=== PATIENT | female | born 2000 | race Caucasian/White ===

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

== ENCOUNTER 2020-01-21 14:53 | Emergency (ER) | payer MEDICAID ==
[~2020-01-21] VITALS: Ht 157.5 cm; Wt 54.4 kg
[2020-01-21 15:24] LABS: BILIRUBIN,URINE NEGATIVE (NEGATIVE); CLARITY,URINE SL CLOUDY; COLOR,URINE YELLOW; GLUCOSE, URINE (UA) NEGATIVE (NEGATIVE); KETONES,URINE NEGATIVE (NEGATIVE); LEUKOCYTE ESTERASE ,URINE TRACE (NEGATIVE); NITRITE,URINE NEGATIVE (NEGATIVE); PH,URINE 7.5 (5-9); PROTEIN,URINE NEGATIVE (NEGATIVE)
--- NOTE | 2020-01-21 15:44 | ED GU-Female ---
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 Pt reports chronic bilat pelvic discomfort experienced throughout that has increased in severity. Pt reports on the evening of 01/20/20 after eating dinner, she experienced x1 episode of nausea et vomiting. Pt states, "The pain is on both sides, goes up around, et into my chest." Pt denies urinary symptoms. Pt reports LMP 09/12/19. Source: patient Exam Limitations: no limitations History of Present Illness Date Seen by Provider: Jan 21, 2020 Time Seen by Provider: 15:06 Initial Comments Here with report of bilateral lower quadrant abdominal pain that radiates up the lateral aspects and also into her chest. She is approximately 19 weeks and states that the pain is worse after she's been standing and especially for several hours. Denies dysuria or vaginal discharge or bleeding. Denies recent sexual activity. This is her second . She did not have pain like this with her first . Denies fever or chills. Denies nausea, vomiting or diarrhea. She states that she has somewhat decreased appetite but mostly due to the pain. She is able to eat and drink okay though. Timing/Duration: changing over time, intermittent Severity/Quality: moderate, aching Location: RLQ, LLQ Radiation: right flank, left flank Activities at Onset: other (standing) Prior Genitourinary Problems: none Sexual [place] History: greater than 2 months ago Modifying Factors: Improves With Resting Associated Symptoms: abdominal pain; No dysuria, No fever/chills, No lower back pain, No nausea/vomiting, No urinary frequency Allergies and Home Medications Patient Home Medication List Home Medication List Reviewed: Yes Review of Systems Review of Systems Constitutional: see HPI; No chills, No fever Respiratory: no symptoms reported Cardiovascular: no symptoms reported Gastrointestinal: abdominal pain, loss of appetite; No nausea, No vomiting Genitourinary: denies discharge, denies dysuria; flank pain; denies hematuria : Yes Musculoskeletal: see HPI Skin: no symptoms reported Psychiatric/Neurological: No Symptoms Reported Past Pemoylr-Kfluyn-Oknvta Hx Past Med/Social Hx: Reviewed Nursing Past Med/Soc Hx Patient Social History Alcohol Use: Denies Use Recreational Drug Use: No Smoking Status: Never a Smoker 2nd Hand Smoke Exposure: No Recent Foreign Travel: No Contact w/Someone Who Travel: No Recent Infectious Disease Expo: No Recent Hopitalizations: No Ebola Symptoms: Denies Symptoms Listed Seasonal Allergies Seasonal Allergies: No Past Medical History Surgeries: No Respiratory: No Cardiac: No Neurological: No Genitourinary: No Gastrointestinal: No Musculoskeletal: No Endocrine: No HEENT: No Cancer: No Psychosocial: No Integumentary: No Blood Disorders: No Family Medical History Reviewed Nursing Family Hx Physical Exam Vital Signs Vital Signs - First Documented 01/21/20 15:00 Temp 36.7 Pulse 80 Resp 17 B/P (MAP) 112/62 O2 Delivery Room Air Capillary Refill : Height, Weight, BMI Height: '" Weight: lbs. oz. kg; 21.00 BMI Method: General Appearance: WD/WN, no apparent distress Cardiovascular: regular rate, rhythm, no murmur Respiratory: lungs clear, normal breath sounds Gastrointestinal: non tender, soft; No guarding, No rebound; other (gravid uterus near the level of the umbilicus) Pelvic: other (deferred) Neurologic/Psychiatric: alert, oriented x 3 Skin: normal color, warm/dry Progress/Results/Core Measures Suspected Sepsis SIRS Temperature: Pulse: Respiratory Rate: Blood Pressure / Mean: Results/Orders Lab Results Laboratory Tests Test 01/21/20 15:05 Range/Units Urine Color YELLOW Urine Clarity SL CLOUDY Urine pH 7.5 5-9 Urine Specific [place] 1.020 1.016-1.022 Urine Protein NEGATIVE NEGATIVE Urine Glucose (UA) NEGATIVE NEGATIVE Urine Ketones NEGATIVE NEGATIVE Urine Nitrite NEGATIVE NEGATIVE Urine Bilirubin NEGATIVE NEGATIVE Urine Urobilinogen 1.0 < = 1.0 MG/DL Urine Leukocyte Esterase TRACE H NEGATIVE Urine RBC (Auto) NEGATIVE NEGATIVE Urine RBC NONE /HPF Urine WBC 0-2 /HPF Urine Squamous Epithelial Cells 2-5 /HPF Urine Crystals NONE /LPF Urine Bacteria TRACE /HPF Urine Casts NONE /LPF Urine Mucus NEGATIVE /LPF Urine Culture Indicated NO My Orders Orders - TIERNEY PINON MD Ua Culture If Indicated (01/21/20 15:15) Vital Signs/I&O 01/21/20 15:00 Temp 36.7 Pulse 80 Resp 17 B/P (MAP) 112/62 O2 Delivery Room Air Capillary Refill : Progress Note : Progress Note Seen and evaluated. UA ordered. Bedside ultrasound done to evaluate . Positive heart tones at 165 with positive movement. Tender in the low pelvis near the rib ligaments on exam. Gallbladder ultrasound attempted. Gallbladder not readily identifiable the patient had just eaten. That being said there is no pain in the right upper quadrant on exam. Overall not significantly tender for ultrasound exam. Monitor patient. 1605: UA does not show any significant findings. Patient has appointment with Dr. No on Thursday. I did discuss the case with him. He has recommended a short course of Tylenol with codeine as needed for pain and he will see her on Thursday in the office as scheduled. This was discussed with the patient who agrees. She is overall comfortable and without pain currently. Discharged home with return precautions. Patient verbalize understanding instructions and agreement with plan. Departure Impression Primary Impression: Abdominal pain during Qualified Codes: O26.892 - Other specified related conditions, second trimester; R10.9 - Unspecified abdominal pain Disposition: HOME, SELF-CARE Condition: Stable Departure-Patient Inst. Decision time for Depature: 16:10 Referrals: LUIS FERNANDO MAGANA MD (PCP/Family) Primary Care Physician ESTEBAN NO DO Patient Instructions: Round Ligament Pain, Acute Abdomen (Belly Pain) Add. Discharge Instructions: All discharge instructions reviewed with patient and/or family. Voiced understanding. You may take the prescribed pain medicine or Tylenol/acetaminophen but do not take both at the same time as they both have Tylenol in them. Drink plenty of fluids and get some rest. Follow-up with Dr. No on Thursday as scheduled. Return for worse pain, vomiting, fever, weakness, vaginal bleeding or significant vaginal discharge, difficulty with going to the bathroom or walking or other concerns as needed. Take medications as directed. TIERNEY PINON MD Jan 21, 2020 15:44
[2020-01-21 15:59] LABS: BACTERIA,URINE TRACE /HPF; WBC,URINE 0-2 /HPF
[2020-01-21] MEDS ORDERED: ACET-789 PO (16:08)
--- NOTE | 2020-01-21 16:33 | NUR ---
Pt returns to ED at this time to sign discharge papers. Pt voices no questions or concerns.
== END 2020-01-21 16:00 | disposition left against medical advice (07) ==
LOC: EDUNIT# 14:53 → ER 14:54
DX: O26.892 Other specified pregnancy related conditions, second trimester (principal); R10.31 Right lower quadrant pain; R10.32 Left lower quadrant pain; Z3A.19 19 weeks gestation of pregnancy
CPT/HCPCS: 81000

== ENCOUNTER 2020-05-05 14:53 | Emergency (ER) | payer MEDICAID ==
[~2020-05-05] VITALS: Ht 160 cm; Wt 58.0 kg
[~2020-05-05 14:53] MED LIST: ACET-789 PO
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
[2020-05-05] MEDS ORDERED: HYDR-83 PO (15:11)
[2020-05-05] MEDS ORDERED: HYDROcodone/APAP 5 MG/325 MG (LORTAB) TAB PO ONE (15:15)
--- NOTE | 2020-05-05 15:17 | ED General ---
General Chief Complaint: Bite-Animal/Human/Insect Stated Complaint: WANTS SPIDER BITE CHECKED OUT Nursing Triage Note: Patient presents to the ED with c/o of spider bite to right thigh. She states that she was sleeping night when she rolled over felt a sting on her thigh and seen a spider. She saw her PCP Thursday and was started on an antibiotic. The patient hasn't seen any improvement so wanted to be evaluated in the ED. Source of Information: Patient History of Present Illness Date Seen by Provider: May 05, 2020 Time Seen by Provider: 13:00 Initial Comments Patient is a 19-year-old G2, P1 33 week gestation female presents for reevaluation of right thigh insect bite. Patient was rolled over in bed 3 days ago when she felt a bite to her right anterior mid thigh. Patient subsequently evaluated by her PC/ Today she is noted to have redness swelling and bruising to this area with increased pain. Patient has been treating wound with Prid and was prescribed amoxicillin which she is taking. Reports nausea and decreased appetite. No fever chills, chest pain palpitations, shortness of breath. No rash or drainage. No other acute symptoms or complaints. Timing/Duration: 4-6 Hours Severity: Moderate Associated Systoms: Denies Symptoms Allergies and Home Medications Allergies Coded Allergies: No Known Drug Allergies (Unverified , 05/05/20) Home Medications Acetaminophen with Codeine 1 Each Tablet, 1 EACH PO Q6H PRN for PAIN-MODERATE (5-7) Prescribed by: TIERNEY PINON on 01/21/20 1608 Hydrocodone/Acetaminophen 1 Each Tablet, 1 EACH PO q6 Prescribed by: GILL DUBOSE on 05/05/20 1511 Patient Home Medication List Home Medication List Reviewed: Yes Review of Systems Review of Systems Constitutional: no symptoms reported EENTM: no symptoms reported Respiratory: no symptoms reported, dyspnea on exertion Gastrointestinal: see HPI Genitourinary: no symptoms reported : Yes (33weeks 5days) Musculoskeletal: see HPI Skin: see HPI Psychiatric/Neurological: No Symptoms Reported Immunological/Allergic: no symptoms reported Past Xamvbvt-Khnhgz-Irjqqa Hx Past Med/Social Hx: Reviewed Nursing Past Med/Soc Hx Patient Social History Alcohol Use: Denies Use Recreational Drug Use: No 2nd Hand Smoke Exposure: No Recent Foreign Travel: No Contact w/Someone Who Travel: No Recent Infectious Disease Expo: No Recent Hopitalizations: No Physical Abuse: No Sexual Abuse: No Mistreated: No Fear: No Seasonal Allergies Seasonal Allergies: No Past Medical History Surgeries: No Respiratory: No Cardiac: No Neurological: No Genitourinary: No Gastrointestinal: No Musculoskeletal: No Endocrine: No HEENT: No Cancer: No Psychosocial: No Integumentary: No Blood Disorders: No Physical Exam Vital Signs Vital Signs - First Documented 05/05/20 14:58 Temp 36.7 Pulse 100 Resp 16 B/P (MAP) 113/69 O2 Delivery Room Air Capillary Refill : Height, Weight, BMI Height: '" Weight: lbs. oz. kg; 22.00 BMI Method: General Appearance: No Apparent Distress, WD/WN Eyes: Bilateral Eye Normal Inspection, Bilateral Eye PERRL, Bilateral Eye EOMI HEENT: PERRL/EOMI Neck: Full Range of Motion, Supple Respiratory: Lungs Clear Cardiovascular: Regular Rate, Rhythm Extremity: Other (4 x 3 cm patch of waxy skin over midcentral right ant thigh. No induration drainage or cellulitis. Wound is tender.) Focused Exam Sepsis Stage: Ruled Out Progress/Results/Core Measures Suspected Sepsis SIRS Temperature: Pulse: Respiratory Rate: Blood Pressure / Mean: Results/Orders My Orders Orders - GILL DBUOSE DO Hydrocodone/Apap 5/325 Tablet (Lortab 5 (05/05/20 15:15) Vital Signs/I&O 05/05/20 14:58 Temp 36.7 Pulse 100 Resp 16 B/P (MAP) 113/69 O2 Delivery Room Air Capillary Refill : Departure Communication (Admissions) Exam concerning for spider possibly a brown recluse bite. No evidence of infection or allergic reaction. Will treat pain and PCP follow-up. Impression Primary Impression: Insect bite of leg, right Disposition: HOME, SELF-CARE Condition: Improved Departure-Patient Inst. Decision time for Depature: 15:17 Patient Instructions: Insect Bites and Stings (DC) Add. Discharge Instructions: Please take 1000 mg of Tylenol for pain every 6 hours. If you require stronger pain medication, discontinue Tylenol and take hydrocodone instead. Follow-up with your PCP for further evaluation. Good luck with your . All discharge instructions reviewed with patient and/or family. Voiced understanding. Scripts Hydrocodone/Acetaminophen (Hydrocodone-Acetamin 5-325 mg) 1 Each Tablet 1 EACH PO q6, #15 TAB Prov: GILL DUBOSE DO 05/05/20 GILL DUBOSE DO May 05, 2020 15:17
== END 2020-05-05 15:17 | disposition home or self-care (01) ==
LOC: EDUNIT# 14:53 → ER FS 14:55
DX: O9A.213 Injury, poisoning and certain other consequences of external causes complicating pregnancy, third trimester (principal); S70.361A Insect bite (nonvenomous), right thigh, initial encounter; Z3A.33 33 weeks gestation of pregnancy; W57.XXXA Bitten or stung by nonvenomous insect and other nonvenomous arthropods, initial encounter
CPT/HCPCS: 99283

== ENCOUNTER 2020-06-10 12:05 | Inpatient (IN) | payer MEDICAID ==
[~2020-06-10] VITALS: Ht 160 cm; Wt 59.5 kg
[2020-06-10] VITALS (12 sets, daily range): BP systolic 111–124; BP diastolic 58–89
[~2020-06-10 12:05] MED LIST changes: +HYDR-83 PO
--- NOTE | 2020-06-10 12:10 | NUR ---
KUMAR DUBOSE presented to unit via W/C from ED, accompanied by S/O, with c/o CONTRACTIONS. KUMAR DUBOSE weighed, gowned, voided, and to bed. EFHM and TOCO applied, VS taken. KUMAR DUBOSE oriented to bed controls, call light, TV, heat, and A/C controls.
--- NOTE | 2020-06-10 12:26 | NUR ---
DR. CORTEZ CALLED, NO ANSWER, VOICE MESSAGE LEFT.
--- NOTE | 2020-06-10 12:28 | NUR ---
DR. ALEXIS NOTIFIED OF PT'S ARRIVAL, C/O, @ 38.6 WKS, SVE, CTX Q 3-3.5 MINS. NEW ORDERS RECEIVED.
[2020-06-10] MEDS ORDERED: D5 LR IV SOLUTION 1,000 ML IV SCH (12:30)
[2020-06-10] MEDS ORDERED: D5 LR IV SOLUTION 1,000 ML IV ONE (12:33)
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
[2020-06-10] MEDS ORDERED: LIDOCAINE/EPI 2% 1:200,00 (XYLOCAINE) 10 ML VIAL ONE (12:57)
[2020-06-10] MEDS ORDERED: OXYTOCIN PRE-MIX DRIP 500 ML IV ONE (12:57)
[2020-06-10] MEDS ORDERED: HYDROmorphone 2 MG/ML VIAL (DILAUDID) IV ONE ×2 (13:00→14:30)
--- NOTE | 2020-06-10 13:11 | NUR ---
DR. CORTEZ CALLED UNIT, DR IS AVAILABLE AND WILL BE EN ROUTE TO HOSPITAL.
[2020-06-10] MEDS ORDERED: LIDOCAINE 1% INJ 20 ML 20 ML VIAL ONE (13:23)
[2020-06-10 13:31] LABS: BASOPHILS % (AUTO) 0 % (0-10); EOSINOPHILS # (AUTO) 0.1 10^3/uL (0.0-0.3); EOSINOPHILS % (AUTO) 1 % (0-10); HEMATOCRIT 32 % (35-52); HEMOGLOBIN 9.8 G/DL (11.5-16.0); LYMPHOCYTES # (AUTO) 1.3 X 10^3 (1.0-4.0); LYMPHOCYTES % (AUTO) 14 % (12-44); MEAN CORPUSCULAR HEMOGLOBIN 26 PG (25-34); MEAN CORPUSCULAR HGB CONC 31 G/DL (32-36); MEAN CORPUSCULAR VOLUME 83 FL (80-99); MEAN PLATELET VOLUME 13.1 FL (7.4-10.4); MONOCYTES # (AUTO) 0.4 X 10^3 (0.0-1.0); MONOCYTES % (AUTO) 4 % (0-12); NEUTROPHILS # (AUTO) 7.8 X 10^3 (1.8-7.8); NEUTROPHILS % (AUTO) 81 % (42-75); PLATELET COUNT 130 10^3/uL (130-400); RED CELL DISTRIBUTION WIDTH 13.6 % (10.0-14.5); WHITE BLOOD COUNT 9.7 10^3/uL (4.3-11.0)
[2020-06-10 13:38] LABS: BILIRUBIN,URINE NEGATIVE (NEGATIVE); CLARITY,URINE CLOUDY; COLOR,URINE YELLOW; GLUCOSE, URINE (UA) NEGATIVE (NEGATIVE); KETONES,URINE NEGATIVE (NEGATIVE); LEUKOCYTE ESTERASE ,URINE 1+ (NEGATIVE); NITRITE,URINE NEGATIVE (NEGATIVE); PH,URINE 7.5 (5-9); PROTEIN,URINE NEGATIVE (NEGATIVE)
[2020-06-10] MEDS ORDERED: CATHETER FLUSH 10 ML SYR IV SCH ×2 (14:00→22:00)
[2020-06-10 14:04] LABS: BACTERIA,URINE FEW /HPF; WBC,URINE 0-2 /HPF
--- NOTE | 2020-06-10 14:33 | History & Physical-OB/GYN ---
History of Present Illness History of Present Illness Reason for visit/HPI Ms. Del Rio, A0 a t38 6/7 weeks, presents to the hospital for onset of contractions. At time of admission, she as 6 cm dilated. Date of Admission Jun 10, 2020 at 12:29 Date Seen by a Provider: Jun 10, 2020 Time Seen by a Provider: 14:15 I consulted on this patient on 06/10/20 14:28 Attending Physician [place] No DO Admitting Physician [place] No DO Consult Allergies and Home Medications Allergies Coded Allergies: No Known Drug Allergies (Unverified , 05/05/20) Patient Home Medication List Home Medication List Reviewed: Yes Past Qabnppk-Tgnuky-Pqdlpo Hx Patient Social History Marrital Status: single Number of Children: 1 Number of living children: 1 Alcohol Use: Denies Use Recreational Drug Use: No Smoking Status: Never a Smoker 2nd Hand Smoke Exposure: No Physical Abuse Screen: No Sexual Abuse: No Recent Foreign Travel: No Recent Hopitalizations: No Immunizations Up To Date Pediatric: Yes Seasonal Allergies Seasonal Allergies: No Surgeries No Respiratory No Cardiovascular No Neurological Yes Reproductive System Expected Date of Delivery: Jun 18, 2020 Hx : 2 Hx Para: 1 Hx Total # of Abortions (Spona: 0 Genitourinary No Gastrointestinal No Musculoskeletal No (POSSIBLE SCOLIOSIS - NOT DIAGNOSED.) Endocrine History of Endocrine Disorders: No HEENT History of HEENT Disorders: Yes (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 ) Blood Transfusions History of Blood Disorders: No Adverse Reaction to a Blood Tr: No Family Medical History Family Hx: Patient reports no known family medical history. Review of Systems Constitutional: see HPI Physical Exam Physical Exam Vital Signs Vital Signs Date Time Temp Pulse Resp B/P (MAP) Pulse Ox O2 Delivery O2 Flow Rate FiO2 06/10/20 13:45 36.7 06/10/20 13:23 64 18 120/77 (91) 100 Room Air 06/10/20 12:17 36.4 63 18 111/71 (84) 98 Room Air Capillary Refill : Labs Laboratory Tests 06/10/20 12:20: Urine Color YELLOW, Urine Clarity CLOUDY, Urine pH 7.5, Urine Specific [place] 1.015L, Urine Protein NEGATIVE, Urine Glucose (UA) NEGATIVE, Urine Ketones NEGATIVE, Urine Nitrite NEGATIVE, Urine Bilirubin NEGATIVE, Urine Urobilinogen 0.2, Urine Leukocyte Esterase 1+H, Urine RBC (Auto) NEGATIVE, Urine RBC NONE, Urine WBC 0-2, Urine Squamous Epithelial Cells 10-25H, Urine Crystals NONE, Urine Bacteria FEWH, Urine Casts NONE, Urine Mucus NEGATIVE, Urine Culture Indicated NO 06/10/20 13:20: White Blood Count 9.7, Red Blood Count 3.81L, Hemoglobin 9.8L, Hematocrit 32L, Mean Corpuscular Volume 83, Mean Corpuscular Hemoglobin 26, Mean Corpuscular Hemoglobin Concent 31L, Red Cell Distribution Width 13.6, Platelet Count 130, Mean Platelet Volume 13.1H, Neutrophils (%) (Auto) 81H, Lymphocytes (%) (Auto) 14, Monocytes (%) (Auto) 4, Eosinophils (%) (Auto) 1, Basophils (%) (Auto) 0, Neutrophils # (Auto) 7.8, Lymphocytes # (Auto) 1.3, Monocytes # (Auto) 0.4, Eosinophils # (Auto) 0.1, Basophils # (Auto) 0.0 General Appearance: No Apparent Distress, WD/WN Respiratory: Chest Non Tender, Lungs Clear, Normal Breath Sounds Cardiovascular: Regular Rate, Rhythm, No Murmur Abdominal: normal bowel sounds, soft Vagina: WNL Cervix: WNL Cervix OS: open (Cervix 6 cm/80%/-2 Vertex/Intact) Uterus: WNL, Enlarged (Gravid) Extremity: Normal Capillary Refill, Non Tender, No Calf Tenderness Assessment/Plan Assessment and Plan Assessment: Intrauterine at 38 6/7 weeks (active labor) Plan: AROM. Pain management per patient request. Expectant management. Admission Diagnosis Admission Status: Inpatient Order (span 2 midnights) Reason for Inpatient Admission: Intrauterine at 38 6/7 weeks--active labor Clinical Quality Measures DVT/VTE Risk/Contraindication: Risk Factor Score Per Nursin RFS Level Per Nursing on Admit: 1=Low/No VTE PPX [place] NO DO Jun 10, 2020 14:33
[2020-06-10] MEDS ORDERED: OXYTOCIN PRE-MIX DRIP 500 ML IV SCH (18:11)
[2020-06-10] MEDS ORDERED: DIBUCAINE (NUPERCAINAL) 1% OINT 30 GM TOP PRN (18:15)
[2020-06-10] MEDS ORDERED: WITCH HAZEL(TUCKS) 40 EA JAR TOP PRN (18:15)
[2020-06-10] MEDS ORDERED: BENZOCAINE/MENTHOL (DERMOPLAST) 60 ML CAN TP PRN (18:15)
[2020-06-10] MEDS ORDERED: TETANUS,DIPTH,PERTUSS P/F (BOOSTRIX) 0.5 ML VIAL IM ONE (18:15)
[2020-06-10] MEDS ORDERED: MEASLES,MUMPS,RUBELLA 1 EA INJ SQ ONE (18:15)
--- NOTE | 2020-06-10 18:16 | OB Labor & Delivery Record ---
Vag Delivery Note Vag Delivery Note Date of Delivery: 06/10/20 Preoperative Diagnosis: Shanel Del Rio is a (19 /Para 2 / 1,Gestational Age (wks)38 6/7 weeks with [the onset of labor] Postoperative Diagnosis: Same Surgeon: ESTEBAN CORTEZ Fish Boning Machine Feeder: [None] Anesthesia: [Pudendal] Delivery Type: [Normal Spontaneous Vaginal Delivery] Findings: [Male] Viable [Male] , apgars [], weight [7 lb 7 oz] Lacerations: Superficial left labial, hemostatic, not repaired Estimated Blood Loss: [300] ml Complications: Nuchal cord x 1, manually reduced Condition: Stable Description of Procedure: The patient is a 19 year old female who presented [with the onset of contractions]. She was admitted and informed consent was obtained. Her labor course was unremarkable. She progressed to complete dilatation and began to push. She was then set up for delivery. The infant's head was delivered atraumatically in the [COLIN] position. The shoulders and remainder of the 's body were then delivered without difficulty. Upon delivery, the head was held below the level of the perineum and the mouth and nares were bulb suctioned. The cord was doubly clamped and cut and the was handed off to the pediatric staff. An intact placenta with 3-vessel cord delivered via [place] and there was found to be minimal bleeding.~ Vigorous fundal massage was performed and the fundus was found to be firm. IV oxytocin was given. Examination of the vagina and perineum revealed a [superficial left labial] laceration not requiring repair. Following the repair, sponge, instrument and needle counts were correct. Mom and baby were both in stable condition in the labor suite. Vitals - Labs Vital Signs - I&O Vital Signs Date Time Temp Pulse Resp B/P (MAP) Pulse Ox O2 Delivery O2 Flow Rate FiO2 06/10/20 14:51 36.7 63 18 124/89 (101) Room Air 06/10/20 14:23 36.5 63 18 113/60 (77) Room Air 06/10/20 13:45 36.7 06/10/20 13:23 64 18 120/77 (91) 100 Room Air 06/10/20 12:17 36.4 63 18 111/71 (84) 98 Room Air Labs Laboratory Tests 06/10/20 12:20: Urine Color YELLOW, Urine Clarity CLOUDY, Urine pH 7.5, Urine Specific [place] 1.015L, Urine Protein NEGATIVE, Urine Glucose (UA) NEGATIVE, Urine Ketones NEGATIVE, Urine Nitrite NEGATIVE, Urine Bilirubin NEGATIVE, Urine Urobilinogen 0.2, Urine Leukocyte Esterase 1+H, Urine RBC (Auto) NEGATIVE, Urine RBC NONE, Urine WBC 0-2, Urine Squamous Epithelial Cells 10-25H, Urine Crystals NONE, Urine Bacteria FEWH, Urine Casts NONE, Urine Mucus NEGATIVE, Urine Culture Indicated NO 06/10/20 13:20: White Blood Count 9.7, Red Blood Count 3.81L, Hemoglobin 9.8L, Hematocrit 32L, Mean Corpuscular Volume 83, Mean Corpuscular Hemoglobin 26, Mean Corpuscular Hemoglobin Concent 31L, Red Cell Distribution Width 13.6, Platelet Count 130, Mean Platelet Volume 13.1H, Neutrophils (%) (Auto) 81H, Lymphocytes (%) (Auto) 14, Monocytes (%) (Auto) 4, Eosinophils (%) (Auto) 1, Basophils (%) (Auto) 0, Neutrophils # (Auto) 7.8, Lymphocytes # (Auto) 1.3, Monocytes # (Auto) 0.4, Eosinophils # (Auto) 0.1, Basophils # (Auto) 0.0 ESTEBAN CORTEZ DO Jun 10, 2020 18:16
[2020-06-10] MEDS: DOCUSATE SODIUM 100 MG (COLACE) CAP PO SCH (19:34)
[2020-06-10] MEDS: IBUPROFEN 800 MG (MOTRIN) TAB PO SCH (19:34)
[2020-06-10] MEDS: ACETAMINOPHEN 500 MG TAB (TYLENOL) PO SCH (21:41)
[2020-06-11] VITALS: BP 109/56
[2020-06-11 04:10] VITALS: BP 110/78
[2020-06-11] MEDS: ACETAMINOPHEN 500 MG TAB (TYLENOL) PO SCH ×3 (04:13→18:29)
[2020-06-11] MEDS: IBUPROFEN 800 MG (MOTRIN) TAB PO SCH ×2 (04:13→14:38)
[2020-06-11 06:27] LABS: BASOPHILS % (AUTO) 0 % (0-10); EOSINOPHILS # (AUTO) 0.1 10^3/uL (0.0-0.3); EOSINOPHILS % (AUTO) 0 % (0-10); HEMATOCRIT 32 % (35-52); LYMPHOCYTES % (AUTO) 15 % (12-44); MEAN CORPUSCULAR HEMOGLOBIN 26 PG (25-34); MEAN CORPUSCULAR HGB CONC 31 G/DL (32-36); MEAN CORPUSCULAR VOLUME 82 FL (80-99); MEAN PLATELET VOLUME 12.6 FL (7.4-10.4); MONOCYTES # (AUTO) 0.6 X 10^3 (0.0-1.0); MONOCYTES % (AUTO) 5 % (0-12); NEUTROPHILS # (AUTO) 10.5 X 10^3 (1.8-7.8); NEUTROPHILS % (AUTO) 80 % (42-75); PLATELET COUNT 172 10^3/uL (130-400); RED CELL DISTRIBUTION WIDTH 13.4 % (10.0-14.5); WHITE BLOOD COUNT 13.1 10^3/uL (4.3-11.0)
[2020-06-11] MEDS ORDERED: PRENATAL VITAMIN 1 EA TAB PO SCH (07:00)
[2020-06-11] MEDS ORDERED: IBUP-1780 PO (07:27)
[2020-06-11] MEDS ORDERED: OXYC5TAB96 PO (07:27)
[2020-06-11] MEDS ORDERED: DCS100C PO (07:27)
[2020-06-11] MEDS ORDERED: ACET-93 PO (07:27)
--- NOTE | 2020-06-11 07:33 | Discharge Summary ---
Diagnosis/Chief Complaint Date of Admission Jun 10, 2020 at 12:29 Date of Discharge June 11, 2020 Discharge Date: Jun 11, 2020 Discharge Time: 18:00 Admission Diagnosis Admission Diagnosis Intrauterine at 38 6/7 weeks--in active labor Discharge Diagnosis Intrauterine at 38 6/7 weeks--in active labor--delivered Reason Hospital Visit Ms. Del Rio, A0 a t38 6/7 weeks, presents to the hospital for onset of contractions. At time of admission, she as 6 cm dilated. Discharge Summary Hospital Course Was the Problem List Reviewed?: Yes Hospital Course Ms. Del Rio, A0 a t38 6/7 weeks, presents to the hospital for onset of contr actions. At time of admission, she as 6 cm dilated. She progressed to complete, then delivered a healthy viable male . Both and mom were stable. She was started on oral pain medications and care. Her vital signs remained stable throughout her hospitalization. The remainder of her hospitalization was unremarkable. She will discharge to home with inst ructions, prescriptions and a follow up appointment. Labs Laboratory Tests 06/10/20 12:20: Urine Specific [place] 1.015L, Urine Leukocyte Esterase 1+H, Urine Squamous Epithelial Cells 10-25H, Urine Bacteria FEWH 06/10/20 13:20: Red Blood Count 3.81L, Hemoglobin 9.8L, Hematocrit 32L, Mean Corpuscular Hemoglobin Concent 31L, Mean Platelet Volume 13.1H, Neutrophils (%) (Auto) 81H 06/11/20 06:20: Red Blood Count 3.87L, Hemoglobin 10.0L, Hematocrit 32L, Mean Corpuscular Hemoglobin Concent 31L, Mean Platelet Volume 12.6H, Neutrophils (%) (Auto) 80H, White Blood Count 13.1H, Neutrophils # (Auto) 10.5H Procedures None. Discharge Physical Examination Allergies: Coded Allergies: No Known Drug Allergies (Unverified , 05/05/20) Vitals & I&Os Vital Signs Date Time Temp Pulse Resp B/P (MAP) Pulse Ox O2 Delivery O2 Flow Rate FiO2 06/11/20 04:10 36.2 59 18 110/78 (89) 97 Room Air General Appearance: Alert, Oriented X3, Cooperative HEENT: Atraumatic Respiratory: Clear to Auscultation, Normal Air Movement Cardiovascular: Regular Rate, No Murmurs Abdominal: Normal Bowel Sounds, Soft Extremities: No Clubbing, No Cyanosis Skin: No Rashes Neuro: Normal Gait, Normal Speech Psych/Mental Status: Mental Status NL Discharge Home Medications Reviewed and agree with Discharge Medication list on patient's Discharge Instruction sheet Instructions to Patient/Family Please see electronic discharge instructions given to patient. Clinical Quality Measures DVT/VTE Risk/Contraindication: Risk Factor Score Per Nursin RFS Level Per Nursing on Admit: 1=Low/No VTE PPX ESTEBAN CORTEZ DO Jun 11, 2020 07:33
[2020-06-11 08:55] VITALS: BP 111/73
[2020-06-11] MEDS: DOCUSATE SODIUM 100 MG (COLACE) CAP PO SCH (09:00)
[2020-06-11 14:00] VITALS: BP 115/75
--- NOTE | 2020-06-11 14:38 | NUR ---
Pt refused TDAP. Had an immunization 2 years ago.
--- NOTE | 2020-06-11 19:00 | NUR ---
DISCHARGE PACKET GIVEN AND EXPLAINED PER NDURNAL RN PRIOR TO THIS RN ASSUMING CARE.
--- NOTE | 2020-06-11 19:55 | NUR ---
Pt off unit/campus at this time for d/c, accompanied by Livan almeidahouse player.
[2020-06-11 20:00] VITALS: BP 112/72
== END 2020-06-11 20:00 | disposition home or self-care (01) | DRG 807 ==
LOC: WSo 12:05 → LDRP 12:05 → WSo 12:29 → LDRP 20:30
PROVIDERS: ADMIT Obstetrics & Gynecology; ATTEND Obstetrics & Gynecology
PROC: 10E0XZZ Delivery of Products of Conception, External Approach (ICD-10-PCS; principal; 2020-06-10)
DX: O70.0 First degree perineal laceration during delivery (principal); Z37.0 Single live birth; Z3A.38 38 weeks gestation of pregnancy
CPT/HCPCS: 36415; 81000; 85025; 86850; 86900; 86901